=== PATIENT | female | born 1990 | race American Indian/Alaskan Native ===

== ENCOUNTER 2019-07-10 22:35 | Emergency (ER) | payer OTHER ==
[2019-07-10 22:53] VITALS: BP 108/70
[2019-07-10] MEDS ORDERED: HYDROcodone/ACETAMINOPHEN 5-325 MG TAB PO ONE (23:55)
--- NOTE | 2019-07-11 00:49 | Emergency Department Report ---
ED General Adult HPI - General Chief complaint: Burn/Smoke Inhalation Stated complaint: BURN TO LT HAND Time Seen by Provider: 07/10/19 22:59 Source: patient Mode of arrival: Ambulatory Limitations: No Limitations - History of Present Illness Initial comments: 29-year-old female patient without significant past medical history presents with complaints of left forearm burn that occurred 5 days ago, now with itching and pain for the past 2 days. Patient states she burned her arm on a a tortilla press while at work. She has been using Neosporin to prevent infection. She reports the wound is itchy and painful with redness that appeared yesterday. She denies any fever/chills/sweats, but does admit to clear appearing drainage from the wound. Patient also denies any difficulty moving her wrist, hand, or fingers. She rates her current pain as a 7/10 in severity. Severity scale (0 -10): 8 - Related Data Previous Rx's Medication Instructions Recorded Last Taken Type Acetaminophen/Codeine [Tylenol 1 tab PO Q6H PRN #9 tab 07/11/19 Unknown Rx /Codeine # 3 tab] Clindamycin [Clindamycin CAP] 300 mg PO Q8H 10 Days #40 cap 07/11/19 Unknown Rx Silver Sulfadiazine [Silvadene] 85 gm TP TID 7 Days #1 cream..g. 07/11/19 Unknown Rx Triamcinolone Acetonide 15 gm TP TID PRN 7 Days #1 07/11/19 Unknown Rx oint...g. Allergies Allergy/AdvReac Type Severity Reaction Status Date / Time No Known Allergies Allergy Unverified 07/10/19 22:44 ED Review of Systems ROS: Stated complaint: BURN TO LT HAND Other details as noted in HPI Constitutional: denies: chills, fever Gastrointestinal: denies: nausea, vomiting Musculoskeletal: denies: joint swelling Skin: rash, lesions, change in color, pruritus Neurological: denies: headache ED Past Medical Hx - Past Medical History Previous Medical History?: No - Surgical History Past Surgical History?: No - Social History Smoking Status: Current Every Day Smoker Substance Use Type: None - Medications Home Medications: Home Medications Medication Instructions Recorded Confirmed Last Taken Type Acetaminophen/Codeine [Tylenol 1 tab PO Q6H PRN #9 tab 07/11/19 Unknown Rx /Codeine # 3 tab] Clindamycin [Clindamycin CAP] 300 mg PO Q8H 10 Days #40 cap 07/11/19 Unknown Rx Silver Sulfadiazine [Silvadene] 85 gm TP TID 7 Days #1 cream..g. 07/11/19 Unknown Rx Triamcinolone Acetonide 15 gm TP TID PRN 7 Days #1 07/11/19 Unknown Rx oint...g. ED Physical Exam - General Limitations: No Limitations General appearance: alert, in no apparent distress - Head Head exam: Present: atraumatic - Eye Eye exam: Present: normal appearance. Absent: scleral icterus - Respiratory Respiratory exam: Absent: respiratory distress - Cardiovascular Cardiovascular Exam: Present: regular rate - Extremities Exam Extremities exam: Present: full ROM, other (Less than 1 cm open second-degree burn noted with surrounding yellowish/clear serous fluid drainage and approximately 5 cm of mild swelling and erythema. Area is tender to palpation. Patient has normal sensation, perfusion, and range of motion of her left hand and fingers.) ED Course Vital Signs 07/10/19 22:39 Temperature 98.8 F Pulse Rate 91 H Respiratory 18 Rate Blood Pressure 108/70 O2 Sat by Pulse 98 Oximetry ED Medical Decision Making - Medical Decision Making Patient here with secondary infection from a small second-degree burn. Her vitals are normal. On exam, cellulitis and impetigo are noted surrounding the small burn. No eschar tissue noted. Patient was given IV clindamycin and [place] for pain. She is well-appearing and stable for discharge home. Prescription for clindamycin, triamcinolone, and Silvadene given. Recommend patient return to ED in 3 days for wound recheck. Wound care and strict return precautions were discussed in great detail with patient who verbalizes understanding. Critical care attestation.: If time is entered above; I have spent that time in minutes in the direct care of this critically ill patient, excluding procedure time. ED Disposition Clinical Impression: Secondary infection of skin, Impetigo Cellulitis Qualifiers: Site of cellulitis: extremity Site of cellulitis of extremity: upper extremity Laterality: left Qualified Code(s): L03.114 - Cellulitis of left upper limb Burn of arm, left, second degree Qualifiers: Encounter type: initial encounter Upper extremity location: forearm Qualified Code(s): T22.212A - Burn of second degree of left forearm, initial encounter Disposition: DC-01 TO HOME OR SELFCARE Is pt being admited?: No Condition: Stable Instructions: Partial Thickness Burn (ED), Cellulitis (ED), Impetigo (ED) Prescriptions: Clindamycin [Clindamycin CAP] 300 mg PO Q8H 10 Days #40 cap Silver Sulfadiazine [Silvadene] 85 gm TP TID 7 Days #1 cream..g. Triamcinolone Acetonide 15 gm TP TID PRN 7 Days #1 oint...g. PRN Reason: Itching Acetaminophen/Codeine [Tylenol /Codeine # 3 tab] 1 tab PO Q6H PRN #9 tab PRN Reason: Pain , Severe (7-10) Referrals: PRIMARY CARE, [Primary Care Provider] - 3-5 Days Forms: Work/School Release Form(ED)
== END 2019-07-11 01:25 | disposition home or self-care (01) ==
LOC: ED 22:35
DX: T22.212A Burn of second degree of left forearm, initial encounter (principal); L03.114 Cellulitis of left upper limb; L08.89 Other specified local infections of the skin and subcutaneous tissue; L01.00 Impetigo, unspecified; F17.200 Nicotine dependence, unspecified, uncomplicated; Z79.899 Other long term (current) drug therapy
CPT/HCPCS: 87116; 96365